=== PATIENT | male | born 1960 | race African-American/Black ===

== ENCOUNTER 2016-08-05 20:11 | Observation (INO) | payer OTHER ==
[2016-08-05] MEDS ORDERED: ASPIRIN 81 MG CHEWABLE TABLETS PO ONE (21:00)
[2016-08-05] MEDS ORDERED: ASPIRIN 81 MG CHEWABLE TABLETS ONE (21:15)
[2016-08-05 21:43] LABS: BASOPHIL 0.8 % (0-2.0); EOSINOPHIL 4.6 % (0-4.5); MCH 26.4 pg (25.7-33.7); MCHC 31.8 g/dl (32.0-35.9); MEAN PLT VOLUME 9.8 fl (7.5-11.1); NEUTROPHILS 66.5 % (42.8-82.8); PLATELET COUNT 172 K/MM3 (134-434); RDW 15.9 % (11.9-15.9); WHITE BLOOD COUNT 4.5 K/mm3 (4.0-10.0)
[2016-08-05 21:57] LABS: INR 2.1 (0.82-1.09); PROTHROMBIN TIME (PATIENT) 23.4 SEC (9.98-11.88)
[2016-08-05 22:11] LABS: ALBUMIN 3.5 g/dl (3.4-5.0); ANION GAP 6 (8-16); BILIRUBIN,TOTAL 0.2 mg/dL (0.2-1.0); CALCIUM 9.1 mg/dL (8.5-10.1); CO2 33 mmol/L (21-32); CREATININE 0.9 mg/dL (0.7-1.3); GLUCOSE,RANDOM 105 mg/dL (74-106); MAGNESIUM 2.2 mg/dL (1.8-2.4); SGOT/AST 28 U/L (15-37); SGPT/ALT 38 U/L (12-78); TOT PROT 6.2 g/dl (6.4-8.2)
--- NOTE | 2016-08-05 22:12 | PDOC ---
History of Present Illness - General Chief Complaint: Chest Pain Stated Complaint: CHEST PAIN Time Seen by Provider: 08/05/16 20:45 - History of Present Illness Initial Comments: 08/05/16 21:57 CHIEF COMPLAINT: chest pain HISTORY OF PRESENT ILLNESS: 56 yo M with history of PE (on Coumadin), heroin abuse, chronic back pain, and depression presents to ED with sudden onset chest pain since 530 pm this evening. He states that he was reading a book and suddenly felt chest pain going down his left arm, with accompanying shortness of breath. He states that the pain is worse on inspiration. He reports a history of pulmonary embolism and DVTs and had an R femoral IVC placed in 2011. He is on methadone for history of heroin abuse, last heroin use was 2 weeks ago. He denies any use of cocaine or other illicit drugs. No recent travel or sick contacts. PAST MEDICAL HISTORY: as per HPI FAMILY HISTORY: Mother - ELIGIO @ age 75, passed from renal failure 2012 SOCIAL HISTORY: Lives at home. 20 pack year smoking history, current 4 cigarettes daily. Hx of heroin abuse. SURGICAL HISTORY: R femoral IVC filter. ALLERGIES: No known drug allergies REVIEW OF SYSTEMS General/Constitutional: Denies fever or chills. Denies weakness, weight change. HEENT: Denies change in vision. Denies ear pain or discharge. Denies sore throat. Cardiovascular: Chest pain, shortness of breath. Respiratory: Denies cough, wheezing, or hemoptysis. Gastrointestinal: Denies nausea, vomiting, diarrhea or constipation. Denies rectal bleeding. Genitourinary: Denies dysuria, frequency, or change in urination. Musculoskeletal: Denies joint or muscle swelling or pain. Denies neck or back pain. Skin and breasts: Denies rash or easy bruising. Neurologic: Denies headache, vertigo, loss of consciousness, or loss of sensation. Psychiatric: Hx depression. Hematologic/Lymphatic: History of DVTs. Allergic/Immunologic: Denies hives or skin allergy. Denies latex allergy. PHYSICAL EXAM General Appearance: Well-appearing, appropriately dressed. No apparent distress. HEENT: EOMI, PERRLA, normal ENT inspection, normal voice, TMs normal, pharynx normal. No conjunctival pallor. No photophobia, scleral icterus. Neck: Supple. Trachea midline. No tenderness, rigidity, carotid bruit, stridor , lymphadenopathy, or thyromegaly. Respiratory/Chest: Lungs CTAB. No shortness of breath, chest tenderness, respiratory distress, accessory muscle use. No crackles, rales, rhonchi, stridor , wheezing, dullness Cardiovascular: RRR. S1, S2. No JVD, murmur, bradycardia, tachycardia. Vascular Pulses: Dorsalis-Pedis (R): 2+, Dorsalis-Pedis (L): 2+ Gastrointestinal/Abdominal: Normal bowel sounds. Abdomen soft, non-distended. No tenderness or rebound tenderness. No organomegaly, pulsatile mass, guarding , hernia, hepatomegaly, splenomegaly. Lymphatic: No adenopathy, tenderness. Musculoskeletal/Extremities: Normal inspection. FROM of all extremities, normal capillary refill. Pelvis Stable. No CVA tenderness. No tenderness to extremities, pedal edema, swelling, erythema or deformity. Integumentary: Appropriate color, dry, warm. No cyanosis, erythema, jaundice or rash Neurologic: weigher production II-XII intact. Fully oriented, alert. Appropriate mood/affect. Motor strength 5/5. No appreciable EOM palsy, facial droop or sensory deficit. Past History - Past Medical History Allergies/Adverse Reactions: Allergies Allergy/AdvReac Type Severity Reaction Status Date / Time No Known Allergies Allergy Verified 08/05/16 20:18 Home Medications: Ambulatory Orders Cyclobenzaprine HCl [Flexeril -] 10 mg PO TID 03/23/15 Warfarin Sodium [Coumadin] 7.5 mg PO DAILY 01/22/16 Gabapentin 300 mg PO TID 02/25/16 Quetiapine Fumarate [Seroquel] 300 mg PO DAILY 02/25/16 Trazodone HCl [Desyrel -] 150 mg PO HS 02/25/16 Methadone [Dolophine -] 30 mg PO DAILY #0 07/11/16 Aspirin [ASA -] 81 mg PO DAILY 08/05/16 Citalopram Hydrobromide [Celexa -] 40 mg PO DAILY 08/05/16 Anemia: No Asthma: No Cancer: No Cardiac Disorders: Yes (pe) CVA: No COPD: No CHF: No DVT: Yes (BILATERAL LE) Dementia: No Diabetes: No GI Disorders: No Disorders: No HTN: No Hypercholesterolemia: No Liver Disease: No Psychiatric Problems: Yes (depression, homicidal thoughts) Seizures: No Thyroid Disease: No - Surgical History Abdominal Surgery: No Appendectomy: No Cardiac Surgery: No Cholecystectomy: No Lung Surgery: No Neurologic Surgery: No Orthopedic Surgery: Yes (cervical surgery ? screws in place 2011) - Immunization History Immunization Up to Date: Yes - Psycho/Social/Smoking Cessation Hx Anxiety: No Suicidal Ideation: No Smoking History: Current every day smoker Have you smoked in the past 12 months: Yes Number of Cigarettes Smoked Daily: 4 Information on smoking cessation initiated: Yes 'Breaking Loose' booklet given: 08/05/16 Hx Alcohol Use: No Drug/Substance Use Hx: No Substance Use Type: None Hx Substance Use Treatment: Yes (detox, MMTP) Cardiac Specific PMH - Complaint Specific PMHX Pacemaker: No *Physical Exam - Vital Signs Last Vital Signs Temp Pulse Resp BP Pulse Ox 98.7 F 74 18 137/83 99 08/05/16 20:18 08/05/16 20:18 08/05/16 20:18 08/05/16 20:18 08/05/16 20:18 ED Treatment Course - LABORATORY CBC & Chemistry Diagram: 08/05/16 21:15 08/05/16 21:15 - ADDITIONAL ORDERS Additional order review: Laboratory Results 08/05/16 08/05/16 08/05/16 21:51 21:15 21:15 INR D-Dimer < 200 Sodium 144 Potassium 4.1 Chloride 105 Carbon Dioxide 33 H Anion Gap 6 L BUN 14 Creatinine 0.9 Creat Clearance w eGFR > 60 Random Glucose 105 Calcium 9.1 Magnesium 2.2 Total Bilirubin 0.2 D AST 28 ALT 38 D Alkaline Phosphatase 66 Creatine Kinase 244 D CK-MB (CK-2) 4.503 H CK-MB (CK-2) Rel Index Cancelled Troponin I < 0.02 Total Protein 6.2 L Albumin 3.5 08/05/16 21:15 INR 2.10 H D D-Dimer Sodium Potassium Chloride Carbon Dioxide Anion Gap BUN Creatinine Creat Clearance w eGFR Random Glucose Calcium Magnesium Total Bilirubin AST ALT Alkaline Phosphatase Creatine Kinase CK-MB (CK-2) CK-MB (CK-2) Rel Index Troponin I Total Protein Albumin 08/05/16 21:15 RBC 4.11 MCV 83.0 MCHC 31.8 L RDW 15.9 MPV 9.8 Neutrophils % 66.5 D Lymphocytes % 17.8 D Monocytes % 10.3 H Eosinophils % 4.6 H Basophils % 0.8 - RADIOLOGY Radiology Studies Ordered: Category Date Time Status CHEST PA & LAT [RAD] Stat Radiology 08/05/16 20:48 Taken - Medications Given in the ED: ED Medications Discontinued Medications Generic Name Dose Route Start Last Admin Trade Name Finesse PRN Reason Stop Dose Admin Aspirin 162 mg 08/05/16 21:00 08/05/16 21:14 Asa - PO 08/05/16 21:01 162 mg ONCE ONE Administration Morphine Sulfate 4 mg 08/05/16 23:31 08/06/16 00:27 Morphine Injection - IVPUSH 08/05/16 23:32 4 mg ONCE ONE Administration Medical Decision Making - Medical Decision Making 08/06/16 00:11 56 yo M with history of PE (on Coumadin), heroin abuse, chronic back pain, and depression presents to ED with sudden onset chest pain since 530 pm this evening. -CBC, CMP, troponin, Mg -CXR, EKG -162 mg ASA -2L O2 via NC EKG: normal sinus rhythm Labs: INR therapeutic, CKMB 4.5, 1st trop negatiev D-dimer - negative Discussed case with MD Dennis, will admit to obs for TREVIN. 08/06/16 00:44 *DC/Admit/Observation/Transfer Diagnosis at time of Disposition: Chest pain, rule out acute myocardial infarction, History of DVT (deep vein thrombosis), Methadone dependence, History of pulmonary embolus (PE) Chest pain Qualifiers: Chest pain type: unspecified Qualified Code(s): R07.9 - Chest pain, unspecified - Discharge Dispostion Admit: Yes
[2016-08-05 22:14] LABS: ALK PHOS 66 U/L (45-117); TROPONIN I < 0.02 ng/ml (0.00-0.05)
[2016-08-05] MEDS ORDERED: morphine CARPU-JECT 4 MG/1 ML DISP.SYRIN IVPUSH ONE (23:31)
[2016-08-06] MEDS ORDERED: morphine CARPU-JECT 4 MG/1 ML DISP.SYRIN ONE (00:24)
[2016-08-06] MEDS ORDERED: IBUPROFEN 600 MG TABLET (FP) PO ONE (01:29)
--- NOTE | 2016-08-06 01:46 | HP ---
CHIEF COMPLAINT: chest pain PCP: Andrea HISTORY OF PRESENT ILLNESS: This is a 56 year old male with a past medical history of PE, DVT, heroin abuse on methadone, chronic back pain, and depression who presented to the ED with sudden onset of chest pain and SOB since 530PM. Recent admission for same on . Pt has an appointment with a realtime reporter for next week. Pt denies palpitations. He states that the pain worsens with position changes and deep breathing. Denies N/V/D. ER course was notable for: (1) Normal troponin (2) ECG without JESSICA/STD Recent Travel: none PAST MEDICAL HISTORY: PE DVT Chronic back pain depression PAST SURGICAL HISTORY: cervical spine surgery-C6 IVC filter 2011 Social History: Smokin cig/day Alcohol: pt denies Drugs: pt states last use 2 weeks ago, on methadone maintenance Family History: mother age 75, [place] in 70s, DM father alive 83y with DM Allergies No Known Allergies Allergy (Verified 08/05/16 20:18) HOME MEDICATIONS: 3 Medication Instructions Recorded Cyclobenzaprine HCl [Flexeril -] 10 mg PO TID 03/23/15 Warfarin Sodium [Coumadin] 7.5 mg PO DAILY 01/22/16 Gabapentin 300 mg PO TID 02/25/16 Quetiapine Fumarate [Seroquel] 300 mg PO DAILY 02/25/16 Trazodone HCl [Desyrel -] 150 mg PO HS 02/25/16 Methadone [Dolophine -] 30 mg PO DAILY #0 07/11/16 Aspirin [ASA -] 81 mg PO DAILY 08/05/16 Citalopram Hydrobromide [Celexa -] 40 mg PO DAILY 08/05/16 REVIEW OF SYSTEMS CONSTITUTIONAL: Absent: fever, chills, diaphoresis, generalized weakness, malaise, loss of appetite, weight change HEENT: Absent: rhinorrhea, nasal congestion, throat pain, throat swelling, difficulty swallowing, mouth swelling, ear pain, eye pain, visual changes CARDIOVASCULAR: Present: chest pain Absent: syncope, palpitations, irregular heart rate, lightheadedness, peripheral edema RESPIRATORY: Present: shortness of breath Absent: cough, dyspnea with exertion, orthopnea, wheezing, stridor, hemoptysis GASTROINTESTINAL: Absent: abdominal pain, abdominal distension, nausea, vomiting, diarrhea, constipation, melena, hematochezia GENITOURINARY: Absent: dysuria, frequency, urgency, hesitancy, hematuria, flank pain, genital pain MUSCULOSKELETAL: Absent: myalgia, arthralgia, joint swelling, back pain, neck pain SKIN: Absent: rash, itching, pallor HEMATOLOGIC/IMMUNOLOGIC: Absent: easy bleeding, easy bruising, lymphadenopathy, frequent infections ENDOCRINE: Absent: unexplained weight gain, unexplained weight loss, heat intolerance, cold intolerance NEUROLOGIC: Absent: headache, focal weakness or paresthesias, dizziness, unsteady gait, seizure, mental status changes, bladder or bowel incontinence PSYCHIATRIC: Absent: anxiety, depression, suicidal or homicidal ideation, hallucinations. PHYSICAL EXAMINATION Vital Signs - 24 hr 3 08/05/16 20:18 Temperature 98.7 F Pulse Rate 74 Respiratory 18 Rate Blood Pressure 137/83 O2 Sat by Pulse 99 Oximetry (%) GENERAL: Awake, alert, and fully oriented, in no acute distress. HEAD: Normal with no signs of trauma. EYES: Pupils equal, round and reactive to light, extraocular movements intact, sclera anicteric, conjunctiva clear. No lid lag. EARS, NOSE, THROAT: Ears normal, nares patent, oropharynx clear without exudates. Moist mucous membranes. NECK: Normal range of motion, supple without lymphadenopathy, JVD, or masses. LUNGS: Breath sounds equal, clear to auscultation bilaterally. No wheezes, and no crackles. No accessory muscle use. HEART: Regular rate and rhythm, normal S1 and S2 without murmur, rub or gallop. ABDOMEN: Soft, nontender, not distended, normoactive bowel sounds, no guarding, no rebound, no masses. No hepatomegaly or splenomegaly. MUSCULOSKELETAL: Normal range of motion at all joints. No bony deformities or tenderness. No CVA tenderness. UPPER EXTREMITIES: 2+ pulses, warm, well-perfused. No cyanosis. No clubbing. Cap refill <2 seconds. No peripheral edema. LOWER EXTREMITIES: 2+ pulses, warm, well-perfused. No calf tenderness. 1-2+ peripheral edema B/L. NEUROLOGICAL: Cranial nerves II-XII intact. Normal speech. Normal gait. PSYCHIATRIC: Cooperative. Good eye contact. Appropriate mood and affect. SKIN: Warm, dry, normal turgor, no rashes or lesions noted. Laboratory Results - last 24 hr 3 08/05/16 08/05/1617 21:15 21:15 21:15 WBC 4.5 RBC 4.11 Hgb 10.9 L D Hct 34.1 L MCV 83.0 MCHC 31.8 L RDW 15.9 Plt Count 172 MPV 9.8 Neutrophils % 66.5 D Lymphocytes % 17.8 D Monocytes % 10.3 H Eosinophils % 4.6 H Basophils % 0.8 INR 2.10 H D D-Dimer < 200 Sodium 144 Potassium 4.1 Chloride 105 Carbon Dioxide 33 H Anion Gap 6 L BUN 14 Creatinine 0.9 Creat Clearance w eGFR > 60 Random Glucose 105 Calcium 9.1 Magnesium 2.2 Total Bilirubin 0.2 D AST 28 ALT 38 D Alkaline Phosphatase 66 Creatine Kinase 244 D CK-MB (CK-2) 4.503 H CK-MB (CK-2) Rel Index Cancelled Troponin I < 0.02 Total Protein 6.2 L Albumin 3.5 ECG: NSR, poor baseline but no obvious JESSICA/STD CXR: elevated L hemidiaphragm, ? eventration ASSESSMENT/PLAN: 56yM with PMH PE, DVT, heroin abuse on methadone, chronic back pain, and depression who presented to the ED with sudden onset of chest pain and SOB. He is being admitted to [facility] for observation to r/o [place]. Chest pain - atypical, low suspicion for [place] - HEART score 3 - trend troponin x 3 - f/u with outpatient cardiology as scheduled - cont asa daily - motrin x 1 dose Peripheral edema - echo on last admission with normal EF - start lasix 40mg po qd PE/DVT hx - cont home coumadin with INR monitoring. chronic back pain - cont neurontin and flexeril depression - cont celexa, trazodone, seroquel opioid dependency - cont methadone after dose verification in AM DVT PPX - low risk, cont home warfarin FEN - tolerating po - repeat BMP in am - low sodium diet as tolerated Dispo: pt currently requires inpatient care. Visit type - Emergency Visit Emergency Visit: Yes ED Registration Date: 08/06/16 Care time: The patient presented to the Emergency Department on the above date and was hospitalized for further evaluation of their emergent condition. - New Patient This patient is new to me today: Yes Date on this admission: 08/06/16 - Critical Care Critical Care patient: No
[2016-08-06 04:09] LABS: TROPONIN I < 0.02 ng/ml (0.00-0.05)
[2016-08-06] MEDS ORDERED: CYCLOBENZAPRINE HCL 10 MG TABLET (FP) ONE (06:15)
[2016-08-06] MEDS ORDERED: GABAPENTIN 100 MG CAPSULE (FP) ONE (06:15)
[2016-08-06] MEDS: CYCLOBENZAPRINE HCL 10 MG TABLET (FP) PO SCH ×2 (06:17→14:33)
[2016-08-06] MEDS: GABAPENTIN 300 MG CAPSULE (FP) PO SCH ×2 (06:17→14:33)
[2016-08-06] MEDS ORDERED: METHADONE HCL 10 MG TABLET PO SCH ×2 (08:00)
[2016-08-06] MEDS ORDERED: METHADONE HCL 10 MG TABLET ONE (08:25)
--- NOTE | 2016-08-06 08:58 | PN ---
Progress Note (short form) - Note Progress Note: Cardiology Consult Dictated 56 M smoker, with hx of DVTs in 2007, PE 2011 on coumadin with IVC filter presents to ER with atypical chest pain described as sharp, worse with deep breathing and positional change. INR therapeutic, saturating 99-100% on room air. TnI negative x2 and ECG with no acute changes. D- dimer negative. REC: Unlikely pulmonary embolism. In light of his age, hyperlipidemia and smoking history a stress test is prudent for further risk stratification after confirming repeat ECG this AM stable and 3rd enzyme obtained. Echo will also be repeated to re-assess LV and rule out pericardial disease. If above diagnostics are WNL, he may be discharged from the CV standpoint with outpatient f/u.
--- NOTE | 2016-08-06 09:35 | CONS ---
DATE OF CONSULTATION: 08/06/2016 REQUESTING PHYSICIAN: Chantelle Kamara NP REASON FOR CONSULTATION: Chest pain. HISTORY OF PRESENT ILLNESS: The patient is a 56-year-old male, smoker, on methadone maintenance for prior heroin abuse, history of DVT in 2007, on Coumadin, subsequent pulmonary embolism in 2011, status post IVC filter, presented to the ER with the development of substernal chest pressure which began at approximately 5:00 p.m. last evening. He describes the pressure as sharp, radiating diffusely across the chest, worse with deep breathing and positional change. He denies associated nausea, vomiting, or diaphoresis. He denies palpitations, PND, or orthopnea. He has chronic lower extremity edema which has not changed. In the emergency room, INR was found to be therapeutic, his O2 saturation has been 99% to 100% on room air, D-dimer was negative. His EKGs do not show any acute changes and appear generally consistent with his previous EKGs from a visit here in June. He is currently alert, oriented, chest pain free in the emergency department. PAST MEDICAL HISTORY: As above and also includes schizophrenia, heroin abuse, depression. ALLERGIES: None. CURRENT MEDICATIONS: Include warfarin 7.5 mg at bedtime, trazodone 150 mg at bedtime, quetiapine 300 mg daily, methadone 30 mg p.o. daily, gabapentin 300 mg p.o. t.i.d., furosemide 40 mg p.o. daily, cyclobenzaprine 10 mg p.o. t.i.d., citalopram 40 mg p.o. daily, and aspirin 81 mg p.o. daily. FAMILY HISTORY: Noncontributory. SOCIAL HISTORY: Snorts heroin, last used 2 weeks ago. On methadone maintenance. Smokes 4 cigarettes a day. Denies alcohol or other illicit drug use. Lives in [place] with his father. PHYSICAL EXAMINATION: Vital Signs: Afebrile, temperature 98.7, pulse 82 and regular, blood pressure 132/80, O2 100% on room air. HEENT: Anicteric. Neck: No bruits. Heart: S1, 2 regular rate and rhythm. No murmurs. Chest: Clear. Abdomen: Obese, soft, nontender. No aortic enlargement palpable. Extremities: With 1+ bilateral edema. DIAGNOSTIC STUDIES: EKG: Normal sinus, 76 beats per minute with early repolarization changes in the anterior precordial leads, nonspecific ST changes that were generally stable from his previous EKG. CBC: White count 4.5, hematocrit 34.1, platelets 172. D-dimer less than 200. INR 2.1. Sodium 144, potassium 4.1, creatinine 0.9. CK 244, 228. Troponin negative x2 sets. Chest x-ray: No evidence of CHF, pneumonia, or pneumothorax. Shallow inspiration. Elevated left hemidiaphragm. ASSESSMENT: A 56-year-old male, past medical history of deep vein thromboses in 2007, pulmonary embolus in 2011, on Coumadin with inferior vena cava filter, presents to the emergency room with atypical chest pain described as sharp, positional, with therapeutic international normalized ratio, normal oxygen saturation, 2 negative cardiac enzymes, and electrocardiogram showing no acute changes; in addition, his D-dimer was negative. RECOMMENDATIONS: This is unlikely pulmonary embolism. In light of his age, hyperlipidemia, and smoking history, a stress test would be prudent for further risk stratification after confirming that his repeat EKG this morning is stable and his 3rd cardiac enzyme is negative. An echocardiogram will also be obtained and repeated to reassess his LV function and rule out pericardial disease. Thank you for the consultation. SUKHJINDER BURTON M.D. [id number]
[2016-08-06 09:40] LABS: TROPONIN I < 0.02 ng/ml (0.00-0.05)
[2016-08-06] MEDS ORDERED: ASPIRIN COATED 81 MG TABLET.EC PO SCH (10:00)
[2016-08-06] MEDS ORDERED: ASPIRIN 81 MG CHEWABLE TABLETS PO SCH (10:00)
[2016-08-06] MEDS ORDERED: QUEtiapine FUMARATE 300 MG TABLET PO SCH (10:00)
[2016-08-06] MEDS ORDERED: CITALOPRAM HYDROBROMIDE 20 MG TABLET (FP) PO SCH (10:00)
[2016-08-06] MEDS ORDERED: FUROSEMIDE 40 MG TABLET (FP) PO SCH (10:00)
--- NOTE | 2016-08-06 11:48 | EKG ---
Test Reason : Blood Pressure : / mmHG Vent. Rate : 076 BPM Atrial Rate : 076 BPM P-R Int : 200 ms QRS Dur : 092 ms QT Int : 404 ms P-R-T Axes : -06 048 012 degrees QTc Int : 454 ms POOR DATA QUALITY, INTERPRETATION MAY BE ADVERSELY AFFECTED NORMAL SINUS RHYTHM NONSPECIFIC T WAVE ABNORMALITY ABNORMAL ECG WHEN COMPARED WITH ECG OF 10-JUL-2016 10:30, NO SIGNIFICANT CHANGE WAS FOUND Confirmed by DESHAUN WILL MD ([id number]) on 08/06/2016 11:48:20 AM Referred By: Confirmed By:DESHAUN WILL MD
--- NOTE | 2016-08-06 11:53 | EKG ---
Test Reason : Blood Pressure : / mmHG Vent. Rate : 063 BPM Atrial Rate : 063 BPM P-R Int : 212 ms QRS Dur : 098 ms QT Int : 436 ms P-R-T Axes : -02 050 014 degrees QTc Int : 446 ms SINUS RHYTHM WITH 1ST DEGREE A-V BLOCK NONSPECIFIC T WAVE ABNORMALITY ABNORMAL ECG WHEN COMPARED WITH ECG OF 05-AUG-2016 21:03, NO SIGNIFICANT CHANGE WAS FOUND Confirmed by NICOLETTE VAZQUEZ, DESHAUN ([id number]) on 08/06/2016 11:52:30 AM Referred By: Dasia AU Confirmed By:DESHAUN WILL MD
[2016-08-06] MEDS ORDERED: FUROSEMIDE 40 MG TABLET (FP) ONE (12:56)
[2016-08-06 13:34] VITALS: BMI 36.6
[2016-08-06] MEDS ORDERED: DIPYRIDAMOLE STRESS TEST 50 MG in DEXTROSE 5%-WATER - 40 ML IVPB ONE (14:00)
[2016-08-06 14:25] VITALS: BP 106/62; PULSE 68; TEMP 98.2
--- NOTE | 2016-08-06 15:00 | DS ---
Physical Examination Vital Signs: Vital Signs Temperature 98.2 F 08/06/16 14:00 Pulse Rate 68 08/06/16 14:00 Respiratory Rate 14 08/06/16 14:00 Blood Pressure 106/62 08/06/16 14:00 O2 Sat by Pulse Oximetry (%) 96 08/06/16 13:10 Findings/Remarks: GENERAL: Awake, alert, and fully oriented, in no acute distress. LUNGS: Breath sounds equal, clear to auscultation bilaterally. No wheezes, and no crackles. No accessory muscle use. HEART: Regular rate and rhythm, normal S1 and S2 without murmur, rub or gallop. ABDOMEN: Soft, nontender, not distended, normoactive bowel sounds, no guarding, no rebound, no masses. No hepatomegaly or splenomegaly. MUSCULOSKELETAL: Normal range of motion at all joints. No bony deformities or tenderness. No CVA tenderness. UPPER EXTREMITIES: 2+ pulses, warm, well-perfused. No cyanosis. No clubbing. Cap refill <2 seconds. No peripheral edema. LOWER EXTREMITIES: 2+ pulses, warm, well-perfused. No calf tenderness. 1-2+ peripheral edema B/L. NEUROLOGICAL: Cranial nerves II-XII intact. Normal speech. Discharge Summary Reason For Visit: CHEST PAIN HX OF DVT METHADONE DEPENDENCE Current Active Problems Chest pain (Acute) Chest pain, rule out acute myocardial infarction (Acute) History of DVT (deep vein thrombosis) (Chronic) History of pulmonary embolus (PE) (Chronic) Methadone dependence (Chronic) Hospital Course: 56yM with PMH PE, DVT, heroin abuse on methadone, chronic back pain, and depression who presented to the ED with sudden onset of chest pain and SOB. He is being admitted to [facility] for observation to r/o [place]. Chest pain - atypical, low suspicion for [place] - HEART score 3 - trend troponin x 3 - ECHO with mildly dilated right atrium, LVEF normal, left atrium mildly dilated - Nuclear stress test with normal perfusion scan with no evidence of stress- induced ischemia. Normal EF 52%, mildly enlarged left ventricle - cont asa daily Peripheral edema - echo on last admission with normal EF - start lasix 40mg po qd PE/DVT hx - cont home coumadin with INR monitoring. chronic back pain - cont neurontin and flexeril depression - cont celexa, trazodone, seroquel opioid dependency - cont methadone Condition: Improved - Instructions Diet, Activity, Other Instructions: Please return to the ED with new, persistent, or worsening symptoms. Please follow-up with providers as indicated. Referrals: Caty Mendez [Primary Care Provider] - (Please follow-up with your pcp within 2-3 days) Aquilino Awad MD [Staff Physician] - (Please follow-up with cardiology within 1 week. ) Disposition: HOME - Home Medications Comprehensive Discharge Medication List: Ambulatory Orders Cyclobenzaprine HCl [Flexeril -] 10 mg PO TID 03/23/15 Warfarin Sodium [Coumadin] 7.5 mg PO DAILY 01/22/16 Gabapentin 300 mg PO TID 02/25/16 Quetiapine Fumarate [Seroquel] 300 mg PO DAILY 02/25/16 Trazodone HCl [Desyrel -] 150 mg PO HS 02/25/16 Methadone [Dolophine -] 30 mg PO DAILY #0 07/11/16 Aspirin [ASA -] 81 mg PO DAILY 08/05/16 Citalopram Hydrobromide [Celexa -] 40 mg PO DAILY 08/05/16 This patient is new to me today: Yes Date on this admission: 08/06/16 Emergency Visit: Yes ED Registration Date: 08/06/16 Care time: The patient presented to the Emergency Department on the above date and was hospitalized for further evaluation of their emergent condition. Critical Care patient: No - Discharge Referral Referred to [facility] No
[2016-08-06] MEDS ORDERED: WARFARIN NA 10 MG TABLET (FP) PO SCH (18:00)
[2016-08-06] MEDS ORDERED: WARFARIN NA 7.5 MG TABLET (FP) PO SCH (18:00)
[2016-08-06] MEDS ORDERED: traZODone HCL 150 MG TABLET PO SCH (22:00)
== END 2016-08-06 16:39 | disposition home or self-care (01) ==
LOC: JER 20:11 → JERBED 08-06 01:02 → J4W 08-06 13:45
PROVIDERS: ADMIT Internal Medicine; ATTEND Registered Nurse
DX: R07.89 Other chest pain (principal); Z86.718 Personal history of other venous thrombosis and embolism; I26.99 Other pulmonary embolism without acute cor pulmonale; F32.89 Other specified depressive episodes; M54.89 Other dorsalgia; F11.20 Opioid dependence, uncomplicated; E78.5 Hyperlipidemia, unspecified
CPT/HCPCS: 36415; 71020-TC; 78452-TC; 80053; 82550; 82553; 83735; 84484; 85025; 85379; 85610; 93005; 93010; 93017; 93306-TC; 99285-25; A9502; G0378; J1245

== ENCOUNTER 2017-05-10 02:31 | Emergency (ER) | payer OTHER ==
[2017-05-10 02:39] VITALS: BP 116/66; PULSE 75; TEMP 98.5; BMI 34.9
--- NOTE | 2017-05-10 03:14 | PDOC ---
History of Present Illness - General History Source: Patient Exam Limitations: No Limitations - History of Present Illness Initial Comments: 05/10/17 03:32 The patient is a 56 year old male, with a significant past medical history of pulmonary embolism, deep vein thrombosis, heroin abuse on methadone, chronic back pain and depression, who presents to the emergency department complaining of shortness of breath. The patient reports he has a history of blood clots and reports he was recently admitted to [facility] for a blood clot on 04/30/17 and sent home on 05/08/17, however, he is still feeling short of breath. The patient is not providing additional information. He reports eating normal meals. He denies recent fever, chills, nausea or vomiting. Allergies: NKA Past surgical history: IVC filter <Jeff Leach - Last Filed: 05/10/17 03:38> <Wendy Dennis - Last Filed: 05/11/17 04:26> - General Chief Complaint: Chest Pain Stated Complaint: SHORTNESS OF BREATH/CHEST PAIN Time Seen by Provider: 05/10/17 03:09 Past History <Jeff Leach - Last Filed: 05/10/17 03:38> - Past Medical History Anemia: No Asthma: No Cancer: No Cardiac Disorders: Yes (pe) CVA: No COPD: No CHF: No DVT: Yes (BILATERAL LE) Dementia: No Diabetes: No GI Disorders: No Disorders: No HTN: No Hypercholesterolemia: No Liver Disease: No Psychiatric Problems: Yes (depression, homicidal thoughts) Seizures: No Thyroid Disease: No - Surgical History Abdominal Surgery: No Appendectomy: No Cardiac Surgery: No Cholecystectomy: No Lung Surgery: No Neurologic Surgery: No Orthopedic Surgery: Yes (cervical surgery ? screws in place 2011) - Immunization History Immunization Up to Date: Yes - Suicide/Smoking/Psychosocial Hx Smoking History: Current every day smoker Have you smoked in the past 12 months: Yes Number of Cigarettes Smoked Daily: 5 Information on smoking cessation initiated: No 'Breaking Loose' booklet given: 08/05/16 Hx Alcohol Use: No Drug/Substance Use Hx: No Substance Use Type: None Hx Substance Use Treatment: Yes (detox, [facility]) <Wendy Dennis - Last Filed: 05/11/17 04:26> - Past Medical History Allergies/Adverse Reactions: Allergies Allergy/AdvReac Type Severity Reaction Status Date / Time No Known Allergies Allergy Verified 05/10/17 02:37 Home Medications: Ambulatory Orders Cyclobenzaprine HCl [Flexeril -] 10 mg PO TID 03/23/15 Warfarin Sodium [Coumadin] 7.5 mg PO DAILY 01/22/16 Gabapentin 300 mg PO TID 02/25/16 Quetiapine Fumarate [Seroquel] 300 mg PO DAILY 02/25/16 Trazodone HCl [Desyrel -] 150 mg PO HS 02/25/16 Methadone [Dolophine -] 30 mg PO DAILY #0 07/11/16 Aspirin [ASA -] 81 mg PO DAILY 08/05/16 Citalopram Hydrobromide [Celexa -] 40 mg PO DAILY 08/05/16 Review of Systems - Review of Systems Comments:: 05/10/17 03:33 GENERAL/CONSTITUTIONAL: No fever or chills. No weakness. HEAD, EYES, EARS, NOSE AND THROAT: No change in vision. No ear pain or discharge. No sore throat. CARDIOVASCULAR: +Shortness of breath. No chest pain. RESPIRATORY: No cough, wheezing, or hemoptysis. GASTROINTESTINAL: No nausea, vomiting, diarrhea or constipation. GENITOURINARY: No dysuria, frequency, or change in urination. MUSCULOSKELETAL: No joint or muscle swelling or pain. No neck or back pain. SKIN: No rash NEUROLOGIC: No headache, vertigo, loss of consciousness, or change in strength/ sensation. ENDOCRINE: No increased thirst. No abnormal weight change. HEMATOLOGIC/LYMPHATIC: +History of blood clots. No anemia, easy bleeding. ALLERGIC/IMMUNOLOGIC: No hives or skin allergy. <Jeff Leach - Last Filed: 05/10/17 03:38> *Physical Exam - Vital Signs Last Vital Signs Temp Pulse Resp BP Pulse Ox 98.5 F 75 14 116/66 99 05/10/17 02:37 05/10/17 02:37 05/10/17 02:37 05/10/17 02:37 05/10/17 02:37 - Physical Exam Comments: 05/10/17 03:33 GENERAL: Awake, alert, and fully oriented, in no acute distress HEAD: No signs of trauma EYES: PERRLA, EOMI, sclera anicteric, conjunctiva clear ENT: Auricles normal inspection, hearing grossly normal, nares patent, oropharynx clear without exudates. Moist mucosa NECK: Normal ROM, supple, no lymphadenopathy, JVD, or masses LUNGS: Breath sounds equal, clear to auscultation bilaterally. No wheezes, and no crackles HEART: Regular rate and rhythm, normal S1 and S2, no murmurs, rubs or gallops ABDOMEN: Soft, nontender, normoactive bowel sounds. No guarding, no rebound. No masses EXTREMITIES: +Left lower extremity calf edema. Normal range of motion. No clubbing or cyanosis. NEUROLOGICAL: Cranial nerves II through XII grossly intact. Normal speech, normal gait SKIN: Warm, Dry, normal turgor, no rashes or lesions noted. <Jeff Leach - Last Filed: 05/10/17 03:38> - Vital Signs Last Vital Signs Temp Pulse Resp BP Pulse Ox 98.5 F 75 14 116/66 99 05/10/17 02:37 05/10/17 02:37 05/10/17 02:37 05/10/17 02:37 05/10/17 02:37 <Wendy Dennis - Last Filed: 05/11/17 04:26> ED Treatment Course - LABORATORY CBC & Chemistry Diagram: 05/10/17 03:07 05/10/17 03:07 <Wendy Dennis - Last Filed: 05/11/17 04:26> Medical Decision Making - Medical Decision Making 05/10/17 05:53 Patient Name: SHY MCARTHUR THIS IS A PRELIMINARY REPORT FROM [facility] DATE OF SERVICE: 2017-05-10 05:13:36 IMAGES: [id number] EXAM: CTA CHEST No pulmonary embolism. No aortic dissection or aneurysm. No pneumonia or pleural effusions. Fixation lower cervical spine. IVC filter 05/11/17 04:24 Pt was seen earlier in the week by [facility]. He had been worked up for the same. He is on blood thinners for his known "blood clots" Pt has a shayan filter in place and has no PE at this time. Labs are normal. and pt is feeling better; he is stable for discharge home. <Wendy Dennis - Last Filed: 05/11/17 04:26> *DC/Admit/Observation/Transfer - Attestations Scribe Attestion: 05/10/17 03:35 Documentation prepared by Jeff Leach, acting as medical affairs manager for Wendy Dennis MD. <Jeff Leach - Last Filed: 05/10/17 03:38> - Discharge Dispostion Admit: No <Wendy Dennis - Last Filed: 05/11/17 04:26> Diagnosis at time of Disposition: History of DVT (deep vein thrombosis), SOB (shortness of breath), Methadone maintenance therapy patient - Discharge Dispostion Disposition: HOME Condition at time of disposition: Stable - Patient Instructions Printed Discharge Instructions: DI for Atypical Chest Pain
[2017-05-10 03:49] LABS: BASOPHIL 0.6 % (0-2.0); EOSINOPHIL 0.9 % (0-4.5); MCH 26.9 pg (25.7-33.7); MCHC 32.8 g/dl (32.0-35.9); MEAN CELL VOLUME 81.8 fl (80-96); MEAN PLT VOLUME 10.1 fl (7.5-11.1); NEUTROPHILS 78.5 % (42.8-82.8); PLATELET COUNT 211 K/MM3 (134-434); RDW 14.8 % (11.9-15.9); WHITE BLOOD COUNT 7.1 K/mm3 (4.0-10.0)
[2017-05-10 04:19] LABS: ALBUMIN 3.6 g/dl (3.4-5.0); ANION GAP 8 (8-16); BILIRUBIN,TOTAL 0.3 mg/dL (0.2-1.0); CALCIUM 8.8 mg/dL (8.5-10.1); CO2 30 mmol/L (21-32); CREATININE 0.9 mg/dL (0.7-1.3); GLUCOSE,RANDOM 68 mg/dL (74-106); INR 1.79 (0.82-1.09); PROTHROMBIN TIME (PATIENT) 20.2 SEC (9.98-11.88); SGPT/ALT 49 U/L (12-78); TOT PROT 6.8 g/dl (6.4-8.2)
[2017-05-10 04:31] LABS: ALK PHOS 69 U/L (45-117); TROPONIN I < 0.02 ng/ml (0.00-0.05)
[2017-05-10 04:34] LABS: CPK 1329 IU/L (39-308)
[2017-05-10 04:35] LABS: SGOT/AST 57 U/L (15-37)
--- NOTE | 2017-05-10 10:49 | EKG ---
Test Reason : Blood Pressure : / mmHG Vent. Rate : 073 BPM Atrial Rate : 073 BPM P-R Int : 182 ms QRS Dur : 100 ms QT Int : 430 ms P-R-T Axes : 055 048 040 degrees QTc Int : 473 ms NORMAL SINUS RHYTHM NORMAL ECG WHEN COMPARED WITH ECG OF 06-AUG-2016 09:38, ID INTERVAL HAS DECREASED NONSPECIFIC T WAVE ABNORMALITY NO LONGER EVIDENT IN INFERIOR LEADS CLINICAL CORRELATION IS RECOMMENDED Confirmed by PILI VAZQUEZ, JUAN J ([id number] on 05/10/2017 10:49:06 AM Referred By: Confirmed By:JUAN J ALEJANDRE MD
== END 2017-05-10 07:07 | disposition home or self-care (01) ==
LOC: JER 02:31
DX: R06.02 Shortness of breath (principal); Z86.718 Personal history of other venous thrombosis and embolism; Z86.711 Personal history of pulmonary embolism; Z79.01 Long term (current) use of anticoagulants; F11.20 Opioid dependence, uncomplicated; F32.9 Major depressive disorder, single episode, unspecified; M54.89 Other dorsalgia; G89.29 Other chronic pain
CPT/HCPCS: 36415; 71275-TC; 80053; 82550; 82553; 84484; 85025; 85610; 85730; 93005; 93010; 99282-25